=== PATIENT | male | born 1945 | race Caucasian/White ===

== ENCOUNTER → 2021-12-19 | Outpatient (CLI) | payer MEDICARE ==
[2021-12-19 17:13] LABS: BASOPHILS ABSOLUTE AUTO 0.06 K/mm3 (0.00-0.23); BASOPHILS PERCENT AUTO 1 % (0-2); EOSINOPHILS ABSOLUTE AUTO 0.21 K/mm3 (0.00-0.68); EOSINOPHILS PERCENT AUTO 4 % (0-6); Hematocrit 43.8 % (37.0-53.0); Hemoglobin 14.9 g/dL (13.5-17.5); IMMATURE GRAN ABSOLUTE AUTO 0.01 K/mm3 (0.00-0.10); IMMATURE GRAN PERCENT AUTO 0 % (0-1); LYMPHOCYTES ABSOLUTE AUTO 1.83 K/mm3 (0.84-5.20); LYMPHOCYTES PERCENT AUTO 31 % (21-46); MONOCYTES PERCENT AUTO 10 % (4-13); Mean Corpuscular HGB 30.3 pg (26.0-34.0); Mean Corpuscular Volume 89 fL (80-100); Mean Platelet Volume 10.1 fL (9.1-12.4); NEUTROPHILS ABSOLUTE AUTO 3.25 K/mm3 (1.96-9.15); NEUTROPHILS PERCENT AUTO 55 % (41-73); Platelet Count 180 K/mm3 (150-400); RDW Coefficient Variation 13.3 % (11.7-14.2); RDW Standard Deviation 43.5 fL (35.1-46.3); Red Blood Cell Count 4.91 M/mm3 (4.30-5.90); White Blood Cell Count 5.96 K/mm3 (4.00-11.30)
[2021-12-19 17:33] LABS: Albumin, Blood 3.8 g/dL (3.4-5.0); Albumin/Globulin Ratio 1.1 (0.8-1.8); Bilirubin, Total 0.8 mg/dL (0.1-1.0); Bun/Creatinine Ratio 19.7 (12.0-20.0); Calcium, Blood 8.7 mg/dL (8.5-10.1); Creatinine, Blood 1.27 mg/dL (0.60-1.20); Globulin, Blood 3.5 g/dL (2.2-4.0); Potassium, Blood 4.4 mmol/L (3.5-5.5); Thyroid Stimulating Hormone 1.163 uIU/mL (0.360-4.800); Total Protein, Blood 7.3 g/dL (6.4-8.2)
== END | disposition home or self-care (01) ==
LOC: LAB 17:09 → LAB SHORT 17:09
PROVIDERS: Physician Assistant Medical
DX: R53.83 Other fatigue (principal)
CPT/HCPCS: 80053; 84443; 85025

== ENCOUNTER → 2022-11-15 | Outpatient (CLI) | payer MEDICARE | END | disposition home or self-care (01) | LOC: PLD 14:40 → LAB SHORT 14:40 | DX: C44.1122 Basal cell carcinoma of skin of right lower eyelid, including canthus (principal) | CPT/HCPCS: 88305 ==

== ENCOUNTER → 2023-03-03 | Outpatient (CLI) | payer MEDICARE ==
[2023-03-03 15:19] LABS: BASOPHILS ABSOLUTE AUTO 0.06 K/mm3 (0.00-0.23); BASOPHILS PERCENT AUTO 1 % (0-2); EOSINOPHILS ABSOLUTE AUTO 0.19 K/mm3 (0.00-0.68); EOSINOPHILS PERCENT AUTO 2 % (0-6); Hematocrit 42.1 % (37.0-53.0); Hemoglobin 14.3 g/dL (13.5-17.5); IMMATURE GRAN ABSOLUTE AUTO 0.04 K/mm3 (0.00-0.10); IMMATURE GRAN PERCENT AUTO 0 % (0-1); LYMPHOCYTES ABSOLUTE AUTO 1.45 K/mm3 (0.84-5.20); LYMPHOCYTES PERCENT AUTO 11 % (21-46); MONOCYTES ABSOLUTE AUTO 1.26 K/mm3 (0.16-1.47); MONOCYTES PERCENT AUTO 10 % (4-13); Mean Corpuscular HGB 30.4 pg (26.0-34.0); Mean Corpuscular Volume 89 fL (80-100); Mean Platelet Volume 9.5 fL (9.1-12.4); NEUTROPHILS ABSOLUTE AUTO 9.84 K/mm3 (1.96-9.15); NEUTROPHILS PERCENT AUTO 77 % (41-73); Platelet Count 209 K/mm3 (150-400); RDW Coefficient Variation 12.5 % (11.7-14.2); Red Blood Cell Count 4.71 M/mm3 (4.30-5.90); White Blood Cell Count 12.84 K/mm3 (4.00-11.30)
[2023-03-03 15:34] LABS: Albumin, Blood 3.4 g/dL (3.4-5.0); Albumin/Globulin Ratio 0.9 (0.8-1.8); Bilirubin, Total 0.7 mg/dL (0.1-1.0); Bun/Creatinine Ratio 15.3 (12.0-20.0); Calcium, Blood 8.5 mg/dL (8.5-10.1); Creatinine, Blood 1.5 mg/dL (0.60-1.20); Globulin, Blood 3.8 g/dL (2.2-4.0); Potassium, Blood 4.1 mmol/L (3.5-5.5); Total Protein, Blood 7.2 g/dL (6.4-8.2)
== END | disposition home or self-care (01) ==
LOC: LAB SHORT 15:14 → LAB 15:14
PROVIDERS: Physician Assistant
DX: R10.32 Left lower quadrant pain (principal)
CPT/HCPCS: 80053; 83690; 85025

== ENCOUNTER 2023-03-14 16:08 | Inpatient (IN) | payer MEDICARE ==
[2023-03-14 16:58] LABS: BASOPHILS ABSOLUTE AUTO 0.06 K/mm3 (0.00-0.23); BASOPHILS PERCENT AUTO 0 % (0-2); EOSINOPHILS ABSOLUTE AUTO 0.01 K/mm3 (0.00-0.68); EOSINOPHILS PERCENT AUTO 0 % (0-6); Hematocrit 41.7 % (37.0-53.0); Hemoglobin 14.2 g/dL (13.5-17.5); IMMATURE GRAN ABSOLUTE AUTO 0.16 K/mm3 (0.00-0.10); IMMATURE GRAN PERCENT AUTO 1 % (0-1); LYMPHOCYTES ABSOLUTE AUTO 1.19 K/mm3 (0.84-5.20); LYMPHOCYTES PERCENT AUTO 5 % (21-46); MONOCYTES ABSOLUTE AUTO 1.61 K/mm3 (0.16-1.47); MONOCYTES PERCENT AUTO 7 % (4-13); Mean Corpuscular HGB Conc 34.1 g/dL (31.5-36.5); Mean Corpuscular Volume 88 fL (80-100); Mean Platelet Volume 9.7 fL (9.1-12.4); NEUTROPHILS ABSOLUTE AUTO 19.81 K/mm3 (1.96-9.15); NEUTROPHILS PERCENT AUTO 87 % (41-73); Platelet Count 231 K/mm3 (150-400); RDW Coefficient Variation 13.1 % (11.7-14.2); RDW Standard Deviation 42.1 fL (35.1-46.3); Red Blood Cell Count 4.73 M/mm3 (4.30-5.90); White Blood Cell Count 22.84 K/mm3 (4.00-11.30)
[2023-03-14 17:30] LABS: Albumin/Globulin Ratio 0.7 (0.8-1.8); Bilirubin, Total 1.3 mg/dL (0.1-1.0); Bun/Creatinine Ratio 16.7 (12.0-20.0); Calcium, Blood 8.3 mg/dL (8.5-10.1); Creatinine, Blood 1.2 mg/dL (0.60-1.20); Globulin, Blood 4.1 g/dL (2.2-4.0); Potassium, Blood 3.7 mmol/L (3.5-5.5); Total Protein, Blood 7.1 g/dL (6.4-8.2)
[2023-03-14 21:25] LABS: Source, Urine Clean Catch
[2023-03-14 21:34] LABS: Appearance, Urine Clear (Clear); Bilirubin, Urine Neg (Neg); Blood, Urine Neg (Neg); Color, Urine Yellow (P-Yellow); Glucose Qualitative, Urine Neg (Neg); Ketones, Urine Neg (Neg); Leukocyte Esterase, Urine Neg (Neg); Nitrite, Urine Neg (Neg); Protein, Urine 1+ (Neg); Urobilinogen, Urine NORM (Normal)
[2023-03-14] MEDS ORDERED: DICL75ER PO ×2 (22:16→22:24)
[2023-03-14] MEDS ORDERED: LOSA50 PO (22:17)
[2023-03-14] MEDS ORDERED: Amlodipine Bes2.5 MG PO (22:19)
[2023-03-14] MEDS ORDERED: ROSU5 PO (22:20)
[2023-03-14] MEDS ORDERED: AMLO10 PO (22:23)
[2023-03-14] MEDS ORDERED: LOSARTAN POTAS100 M1 PO (22:25)
[2023-03-14 23:15] VITALS: BP 140/74
--- NOTE | 2023-03-15 00:03 | NUR ---
PATIENT IS A NEW ADMIT FROM THE ED. AXOX 4 AND SELF TRANSFER FROM [facility] TO BED AND INDEPENDENT IN ROOM. DENIES CHEST PAIN, SOB, AND N/V. REPORTED TENDER ABDOMEN. ON ROOM AIR. DAUGHTER PRESENT ON ADMISSION AND STAYED THROUGH ASSESSMENT. IV ABX INFUSING FROM ED. REPORTS HAD BASAL CELL CANCER REMOVED FROM FACE 03/13/23 AND BAND-AID OVER SITE BELOW RIGHT EYE. REPORTS USES CPAP AT HOME AND REFUSING AT THIS TIME. LOW GRADE TEMP 99.7 ON ADMIT. ORIENTED TO ROOM AND CALL LIGHT SYSTEM. WCTM.
[2023-03-15 03:49] LABS: Campylobacter Sp Not Detected (NOT DETECT)
[2023-03-15 03:50] LABS: Adenovirus F 40/41 Not Detected (NOT DETECT); Astrovirus Not Detected (NOT DETECT); Cryptosporidium Not Detected (NOT DETECT); Cyclospora Cayetanensis Not Detected (NOT DETECT); E. Coli O157 Not Detected (NOT DETECT); Entamoeba Histolytica Not Detected (NOT DETECT); Enteroaggregative E. coli-EAEC Not Detected (NOT DETECT); Enteropathogenic E. coli-EPEC Not Detected (NOT DETECT); Enterotoxigenic E. coli-ETEC Not Detected (NOT DETECT); Giardia Lamblia Not Detected (NOT DETECT); Norovirus GI/GII Not Detected (NOT DETECT); Plesiomonas Shigelloides Not Detected (NOT DETECT); Rotavirus A Not Detected (NOT DETECT); Salmonella Sp Not Detected (NOT DETECT); Sapovirus Not Detected (NOT DETECT); Shiga Toxin-prod E. coli-STEC Not Detected (NOT DETECT); Shigella/Enteroin E. coli-EIEC Not Detected (NOT DETECT); Vibrio Cholerae Not Detected (NOT DETECT); Vibrio Sp Not Detected (NOT DETECT); Yersinia Enterocolitica Not Detected (NOT DETECT)
[2023-03-15 04:13] VITALS: BP 137/80
--- NOTE | 2023-03-15 04:17 | NUR ---
SHIFT SUMMARY PATIENT AXOX 4 AND INDEPENDENT IN ROOM. STOOL SAMPLE SENT IN AND C. DIFF + REPORTED LLQ PAIN AND IV FENTANYL ORDERED BY HOSPITALIST DR SARMIENTO 25-50 MCG. PATIENT REPORTED JUST MODERATE PAIN AND TO GIVE 25 MCG LOWER DOSE. REPORTED HE NOW WANTED CPAP AND ORDER FOR CPAP PROTOCOL PLACED AND RT SETUP. ON ROOM AIR. DENIES CHEST PAIN, SOB, AND N/V. PIV REMAINS INTACT. IV ABX INFUSED FOLLOWED BY NS @ 125 mL/HR X ONE OF TWO BAGS. VSS WITH LOW GRADE TEMP 99.7 ON ADMIT AND NOW 98.7. COOPERATIVE WITH CARE. CALL LIGHT IN REACH. BED IN LOWEST POSITION. WILL CONTINUE TO MONITOR UNTIL DAY SHIFT NURSE ASSUMES CARE.
[2023-03-15 04:48] LABS: BASOPHILS ABSOLUTE AUTO 0.04 K/mm3 (0.00-0.23); BASOPHILS PERCENT AUTO 0 % (0-2); EOSINOPHILS ABSOLUTE AUTO 0.02 K/mm3 (0.00-0.68); EOSINOPHILS PERCENT AUTO 0 % (0-6); Hematocrit 37.8 % (37.0-53.0); Hemoglobin 12.9 g/dL (13.5-17.5); IMMATURE GRAN ABSOLUTE AUTO 0.08 K/mm3 (0.00-0.10); IMMATURE GRAN PERCENT AUTO 0 % (0-1); LYMPHOCYTES PERCENT AUTO 7 % (21-46); MONOCYTES ABSOLUTE AUTO 1.54 K/mm3 (0.16-1.47); MONOCYTES PERCENT AUTO 9 % (4-13); Mean Corpuscular HGB Conc 34.1 g/dL (31.5-36.5); Mean Corpuscular Volume 88 fL (80-100); NEUTROPHILS ABSOLUTE AUTO 15.16 K/mm3 (1.96-9.15); NEUTROPHILS PERCENT AUTO 84 % (41-73); Platelet Count 203 K/mm3 (150-400); RDW Coefficient Variation 13.2 % (11.7-14.2); RDW Standard Deviation 42.5 fL (35.1-46.3); White Blood Cell Count 18.14 K/mm3 (4.00-11.30)
[2023-03-15 05:59] LABS: Albumin, Blood 2.6 g/dL (3.4-5.0); Albumin/Globulin Ratio 0.7 (0.8-1.8); Bun/Creatinine Ratio 16.5 (12.0-20.0); Calcium, Blood 7.6 mg/dL (8.5-10.1); Creatinine, Blood 1.21 mg/dL (0.60-1.20); Globulin, Blood 3.5 g/dL (2.2-4.0); Potassium, Blood 3.4 mmol/L (3.5-5.5); Total Protein, Blood 6.1 g/dL (6.4-8.2)
[2023-03-15 08:03] VITALS: BP 137/72
[2023-03-15 15:47] VITALS: BP 122/63
--- NOTE | 2023-03-15 18:44 | NUR ---
SHIFT SUMMARY PT AXO, PLEASANT AND COOPERATIVE WITH CARE. VSS ALTHOUGH PT TEMP WAS NOTED TO BE 99.6. DR COSTA NOTIFIED 827 THAT PATIENT GOT IMMODIUM. PT MEDICATED FOR PAIN X2 THIS SHIFT AND NAUSEA X1. PT DENIES PAIN AT THIS TIME. HE STATES THAT HE IS STILL HAVING LARGE LIQUID BROWN STOOLS. IV PATENT AND INFUSING PER EMAR. PT UP AD ROSALBA IN ROOM. BED IN LOW POSITION, CALL LIGHT WITHIN REACH. PT HAD SHOWER THIS SHIFT WELL. PT DENIES SOB.
[2023-03-15 20:08] VITALS: BP 116/67
--- NOTE | 2023-03-16 04:17 | NUR ---
SHIFT SUMMARY PATIENT HAD NO ACUTE CHANGES. AXOX 4 AND INDEPENDENT IN ROOM. PATIENT REPORTS STILL HAVING LOOSE STOOLS. PIV REMAINS INTACT. IV ABX INFUSED AND ORAL VANCO GIVEN PER EMAR. NORMAL SALINE DC'D. VSS/AFEBRILE. DENIES CHEST PAIN, SOB, AND N/V. DAUGHTER PRESENT FIRST FEW HOURS OF SHIFT. WEARS CPAP AT NIGHT. COOPERATIVE WITH CARE. CALL LIGHT IN REACH. BED IN LOWEST POSITION. WILL CONTINUE TO MONITOR UNTIL DAY SHIFT NURSE ASSUMES CARE.
[2023-03-16 05:01] VITALS: BP 125/72
[2023-03-16 07:51] VITALS: BP 127/73
[2023-03-16 08:06] LABS: BASOPHILS ABSOLUTE AUTO 0.04 K/mm3 (0.00-0.23); BASOPHILS PERCENT AUTO 1 % (0-2); EOSINOPHILS ABSOLUTE AUTO 0.12 K/mm3 (0.00-0.68); EOSINOPHILS PERCENT AUTO 1 % (0-6); Hematocrit 35.8 % (37.0-53.0); IMMATURE GRAN ABSOLUTE AUTO 0.03 K/mm3 (0.00-0.10); IMMATURE GRAN PERCENT AUTO 0 % (0-1); LYMPHOCYTES ABSOLUTE AUTO 1.05 K/mm3 (0.84-5.20); LYMPHOCYTES PERCENT AUTO 12 % (21-46); MONOCYTES ABSOLUTE AUTO 0.77 K/mm3 (0.16-1.47); MONOCYTES PERCENT AUTO 9 % (4-13); Mean Corpuscular HGB 29.7 pg (26.0-34.0); Mean Corpuscular HGB Conc 33.5 g/dL (31.5-36.5); Mean Corpuscular Volume 89 fL (80-100); Mean Platelet Volume 9.8 fL (9.1-12.4); NEUTROPHILS ABSOLUTE AUTO 6.51 K/mm3 (1.96-9.15); NEUTROPHILS PERCENT AUTO 76 % (41-73); Platelet Count 175 K/mm3 (150-400); RDW Coefficient Variation 13.1 % (11.7-14.2); RDW Standard Deviation 42.5 fL (35.1-46.3); Red Blood Cell Count 4.04 M/mm3 (4.30-5.90); White Blood Cell Count 8.52 K/mm3 (4.00-11.30)
[2023-03-16 08:59] LABS: Bun/Creatinine Ratio 12.2 (12.0-20.0); Calcium, Blood 7.6 mg/dL (8.5-10.1); Creatinine, Blood 1.15 mg/dL (0.60-1.20); Potassium, Blood 3.6 mmol/L (3.5-5.5)
[2023-03-16 15:25] VITALS: BP 111/65
--- NOTE | 2023-03-16 19:07 | NUR ---
SHIFT SUMMARY: PT A/O X 4, IND IN ROOM, PLEASANT AND COOPERATIVE WITH CARE. PT REPORTS HE IS STILL HAVING LOOSE WATERY STOOL X 5 TODAY. PT STILL ON CLEAR LIQUID DIET. ABD PAIN AND NAUSEA CONTROLLED WITH CURRENT PAIN MEDICATIONS AND ZOFRAN. PT HAD NO OTHER COMPLAINTS.
--- NOTE | 2023-03-16 19:10 | NUR ---
PT EDUCATED ON RISK OF IGNITION SOURCES AND RISK FOR INJURY WHILE OXYGEN IS IN USE. PT DENIES SMOKING AND PT VERBALIZES UNDERSTANDING. PT DOES USE CPAP AT NIGHT BUT DOES NOT HAVE OXYGEN ON.
[2023-03-16 19:59] VITALS: BP 121/64
[2023-03-17 05:28] VITALS: BP 132/67
--- NOTE | 2023-03-17 05:51 | NUR ---
SHIFT SUMMARY: ANNEL IS A&OX4. VSS, NO ACUTE EVENTS OVERNIGHT. PT DOES NOT REQUIRE SUPPLEMENTAL OXYGEN. EDUCATED PT REGARDING IGNITION SOURCES AND RISK OF INJURY WITH USE OF SUPPLEMENTAL OXYGEN. PT VERBALIZED UNDERSTANDING AND STATES THAT HE DOES NOT HAVE ANY SOURCE OF SPARK OR FLAME IN HIS POSESSION. HE IS TOLERATING THE CLEAR LIQUID DIET WITHOUT DIFFICULTY, NO NAUSEA REPORTED THIS SHIFT. HE DID STATE THAT THE NUMBER OF BOWEL MOVEMENTS IS DECREASING, REPORTING 2 BM THIS SHIFT. PT USED THE CPAP AT WILL THIS SHIFT. PT REPORTED GOOD PAIN CONTROL WITH ONE TABLET OF NORCO 5/325 AND IS INDEPENDENT IN THE ROOM. PT IS LYING IN BED WITH THE CALL LIGHT IN REACH.
[2023-03-17 07:42] LABS: Bun/Creatinine Ratio 9.9 (12.0-20.0); Calcium, Blood 7.8 mg/dL (8.5-10.1); Creatinine, Blood 1.11 mg/dL (0.60-1.20); Potassium, Blood 3.5 mmol/L (3.5-5.5)
[2023-03-17 07:51] VITALS: BP 136/74
--- NOTE | 2023-03-17 10:32 | NUR ---
NURSE NOTE PATIENT WAS EDUCATED ON FIRE PREVENTION AND SMOKING POLICIES IN THE HOSPITAL.
--- NOTE | 2023-03-17 16:32 | NUR ---
SHIFT SUMMARY PATIENT IS ALERT AND ORIENTED. PATIENT HAS NOT HAD ANY ACUTE EVENTS THIS SHIFT. VITAL SIGNS REVIEWED. PATIENT REMAINS IN ISOLATION FOR CDIFF. PATIENT HAS NOT HAD FREQUENT EPISODES OF DIARRHEA THIS SHIFT. ABX INFUSING ORDERED. ISO MAINTAINED THIS SHIFT. PATIENT HAS REPORTED PAIN ONCE THIS SHIFT. MEDICATED PER EMAR. PATIENT HAS NOT COMPLAINED OF SOB, NAUSEA OR VOMITTING THIS SHIFT. BED IN LOCKED AND LOWEST POSITION. CALL LIGHT IN PLACE.
[2023-03-17 16:36] VITALS: BP 117/63
[2023-03-17 20:24] VITALS: BP 138/73
[2023-03-18 05:04] VITALS: BP 136/73
--- NOTE | 2023-03-18 05:30 | NUR ---
FIRE ALARM OPERATOR SUMMARY PT A/OX4. PLEASANT AND COPERATIVE. ABLE TO MAKE NEEDS KNOWN AND CALLS APPROPRIATELY. ABOX TREATMENT GIVEN PER NOV. REPORTS IMPROVED ABD PAIN AND NO BOWEL MOVEMENTS SO FAR THIS SHIFT. REPORTED SOME NAUSEA WITH THE ORAL VANCO CAPSULES. GAVE IV ZOFRAN. PT STATES DAUGHTER WILL BE GIVING RIDE HOME AFTER DISCHARGE AND NEEDS TO LEAVE BY 11AM. PT EDUCATED REGARDING IGNITION SOURCES AND RISK OF INJURY WHILE OXYGEN IS IN USE. PT INDICATES UNDERSTANDING. OXYGEN NOT IN USE.
[2023-03-18 07:47] LABS: Bun/Creatinine Ratio 7.5 (12.0-20.0); Calcium, Blood 7.8 mg/dL (8.5-10.1); Creatinine, Blood 1.07 mg/dL (0.60-1.20); Potassium, Blood 3.4 mmol/L (3.5-5.5)
[2023-03-18] MEDS ORDERED: Florastor250 MG PO (10:03)
[2023-03-18] MEDS ORDERED: TAMS.4ER PO (10:03)
[2023-03-18] MEDS ORDERED: VANCOCIN HCL250 MG PO (10:04)
--- NOTE | 2023-03-18 11:26 | NUR ---
DISCHARGE SUMMARY PATIENT WITH NO COMPLAINTS THIS MORNING. PATIENT EDUCATION AND MEDICATION PACKET PRINTED AND GIVEN TO PATIENT. SIGNATURE OBTAINED. PATIENT LEFT FLOOR IN WHEELCHAIR WITH DAUGHTER JOCELINE WHO WILL PROVIDE RIDE HOME FOR PATIENT.
== END 2023-03-18 11:25 | disposition home or self-care (01) | DRG 872 ==
LOC: ER 16:08 → MEDS 16:09 → ENPENDDIS 03-18 09:49 → MEDS 03-18 11:25
PROVIDERS: Emergency Medicine; Family Medicine; Physician Assistant; ADMIT Internal Medicine
DX: A41.9 Sepsis, unspecified organism (principal); A04.72 Enterocolitis due to Clostridium difficile, not specified as recurrent; K51.00 Ulcerative (chronic) pancolitis without complications; K64.4 Residual hemorrhoidal skin tags; E87.6 Hypokalemia; N40.0 Benign prostatic hyperplasia without lower urinary tract symptoms; E86.0 Dehydration; I10 Essential (primary) hypertension; K59.00 Constipation, unspecified; Z87.891 Personal history of nicotine dependence
CPT/HCPCS: 36415; 74018; 74177; 80048; 80053; 83605; 85025; 87040; 87324; 87507; 94660; 94760; 94762; 96361; 96365-59; 96366; 96367; 96368; 96372; 96375; 96376; 99285-25; A9270; G0378; J0744; J1650; J2405; J3010; J7030; J7050; Q9967

== ENCOUNTER → 2023-03-30 | Outpatient (CLI) | payer MEDICARE ==
[~2023-03-30] MED LIST: AMLO10 PO; Amlodipine Bes2.5 MG PO; DICL75ER PO; Florastor250 MG PO; LOSA50 PO; LOSARTAN POTAS100 M1 PO; ROSU5 PO; TAMS.4ER PO; VANCOCIN HCL250 MG PO
[2023-03-30 14:31] LABS: Potassium, Blood 4.4 mmol/L (3.5-5.5)
== END | disposition home or self-care (01) ==
LOC: LAB 13:05 → LAB SHORT 13:05
PROVIDERS: Family Medicine
DX: E87.6 Hypokalemia (principal)
CPT/HCPCS: 80051

== ENCOUNTER 2023-05-08 09:01 | Day surgery (SDC) | payer MEDICARE ==
[~2023-05-08] VITALS: Ht 177 cm; Wt 100.7 kg
[2023-05-08] VITALS (16 sets, daily range): BP systolic 135–218; BP diastolic 75–124
[~2023-05-08 09:01] MED LIST changes: +ALLEGRA ALLERG180 MG PO; +ASPI81CH PO; +B COMPLEX; +TOCO1000 PO; +VITAMIN C; +VITAMIN D
--- NOTE | 2023-05-08 09:42 | NUR ---
History, Chart, Medications and Allergies reviewed before start of procedure. Ambulatory in Day Surgery Pre-Op teaching done. Pt verbalizes understanding. Patient confirms NPO status and agrees with scheduled surgery. Patient States Post-Procedure ride home has been arranged.
--- NOTE | 2023-05-08 10:38 | NUR ---
05/08/23 Vandana Hearn HISTORY, CHART, MEDICATIONS AND ALLERGIES REVIEWED BEFORE START OF PROCEDURE. PATIENT CONFIRMS NPO STATUS AND AGREES WITH SCHEDULED PROCEDURE. 3-LEAD EKG REVIEWED WITH PHYSICIAN PRIOR TO START OF PROCEDURE. MONITOR INTACT WITH CONTINUOUS PULSE OXIMETRY,CAPNOGRAPHY, 3-LEAD EKG, INTERMITTENT BP. SUPPLEMENTAL O2 TO BE TITRATED THROUGHOUT PROCEDURE TO MAINTAIN O2 SATURATION ABOVE 90%. PATIENT DETERMINED TO BE ASA APPROPRIATE FOR PROPOFOL SEDATION PRIOR TO START OF PROCEDURE BY
--- NOTE | 2023-05-08 10:54 | NUR ---
REPORT RECEIVED FROM GUANACO THAPA RN. VSS. PT ABLE TO REPOSITION SELF IN BED. PT REQUESTING PO FLUIDS AND TOLERATING THEM WELL. PT DENIES PAIN, NAUSEA, OR OTHER DISCOMFORTS.
--- NOTE | 2023-05-08 11:11 | NUR ---
Patient up to Ambulate independently. Gait steady. VSS. Discharge instructions reviewed with patient. Patient verbalizes understanding. Copy given to patient to take home. Patient States Post-Procedure ride home has been arranged. Discharged via wheelchair to private car for ride home. PT BELONGINGS RETURNED TO PT.
== END 2023-05-08 11:12 | disposition home or self-care (01) ==
LOC: ORSCMMR 09:01 → ORD 10:00 → ORSCMMR 10:00
PROVIDERS: Internal Medicine Gastroenterology
PROC: 0DBK8ZX Excision of Ascending Colon, Via Natural or Artificial Opening Endoscopic, Diagnostic (ICD-10-PCS; principal; 2023-05-08 10:00)
PROC: 0DBN8ZX Excision of Sigmoid Colon, Via Natural or Artificial Opening Endoscopic, Diagnostic (ICD-10-PCS; principal; 2023-05-08 10:00)
DX: Z12.11 Encounter for screening for malignant neoplasm of colon (principal); Z86.010 Personal history of colon polyps; K63.5 Polyp of colon; I10 Essential (primary) hypertension; N40.0 Benign prostatic hyperplasia without lower urinary tract symptoms; Z79.899 Other long term (current) drug therapy
CPT/HCPCS: 88305; J2704; J7120